=== PATIENT | male | born 1955 | race Hispanic/Latino ===

== ENCOUNTER 2017-08-14 11:15 | Day surgery (SDC) | payer BC ==
[2017-08-14 07:57] VITALS: BMI 28.0
[2017-08-14] MEDS ORDERED: Lactated Ringer's 1,000 ML IV ONE (13:45)
[2017-08-14] MEDS ORDERED: Ciprofloxacin 400mg/200ml D5W 400 MG/200 ML BAG IVPB ONE (13:49)
[2017-08-14] MEDS ORDERED: Bupivacaine HCl 0.25% PF (30 ml) Inj ONE (13:49)
[2017-08-14] MEDS ORDERED: Midazolam 2 MG/2 ML VIAL ONE (14:01)
[2017-08-14] MEDS ORDERED: Propofol 10 mg/ml Inj (20 ML) ONE (14:01)
[2017-08-14] MEDS ORDERED: HYDROmorphone 0.5 mg/0.5 ml ISec IVP PRN (15:00)
[2017-08-14] MEDS ORDERED: Oxycodone/Acetaminophen 5/325 mg Tab PO PRN (15:20)
[2017-08-14 16:24] VITALS: RESP 18; TEMP 97.7
[2017-08-14 16:51] VITALS: BP 127/81; PULSE 84; O2SAT 97
--- NOTE | 2017-08-15 01:31 | HP ---
REASON FOR ADMISSION: Right hydrocele. HISTORY: The patient previously had a left hydrocelectomy with me. He is currently doing very well and in fact he is enthusiastic for this. I explained to the patient though that this is a little bit of a different size, much smaller, and the expectation should not be quite as good in terms of his discomfort. He is actually fairly uncomfortable interestingly enough with this. We had discussed the options with the patient. He says it bothers him and therefore, after discussing those options with the patient, we are planning to do further diagnostic studies. PAST MEDICAL AND SURGICAL HISTORY: Really no other interim changes, relatively healthy, but there is no interval change. SOCIAL HISTORY: He comes to the office. He is from [place] originally. I have spoken to his daughter several times. Otherwise unremarkable. MEDICATIONS: See chart. ALLERGIES: SEE CHART. PHYSICAL EXAMINATION: GENERAL: No apparent distress. VITAL SIGNS: Within normal limits. ABDOMEN: Soft and nontender. No flank mass appreciated. GENITOURINARY: Normal phallus without discharge. No testicular mass. What is noted is the right hemiscrotum has the hydrocele. The left side is still somewhat a little bit edematous, but tremendously improved from previous exam, the skin is healing nicely. Remainder of the exam is unremarkable. DIAGNOSIS: Bilateral hydroceles with a remnant of the right hydrocele today. PLAN: The plan is as follows. We discussed the options. We are going to plan for right hydrocelectomy and then further plans will follow. I explained to the patient risks and benefits, we discussed recurrence, I discussed even the left side to recur, I discussed infection, bleeding, etc. After discussing the options, my recommendation is to proceed. The patient is very unhappy with the way the scrotum feels, he is so much happy on the left side, I did explain that there is a difference that the original fluid was about 400 to 500 mL, the right side is only about 100 mL. Further plans will follow. The patient wants it done and he is uncomfortable with the way it feels and appears, etc. So after discussing the plan as above; 1. Antibiotic prophylaxis. 2. Hydrocelectomy. 3. Further plans will follow. Nghia Mac MD [facility] # [id number]
--- NOTE | 2017-08-15 04:59 | OP ---
PROCEDURE DATE: 08/14/2017 PREOPERATIVE DIAGNOSIS: Right hydrocele, bilateral hydrocele. POSTOPERATIVE DIAGNOSIS: Right hydrocele today. PROCEDURE: Right hydrocelectomy. SURGEON: Nghia Mac MD SPECIMEN SENT: hydrocele sac. ESTIMATED BLOOD LOSS: Less than 20 mL. COMPLICATIONS: There were no complications. FINDINGS: The testicles are within normal limits. The epididymis is actually interestingly like almost a separate piece from the testicle, but otherwise, with normal limits. No masses. The other finding, chest is clear. Yellow fluid, only about 150 mL. INDICATIONS: See history and physical for further details. A very pleasant gentleman. We did the left side, it was actually about 400 to 500 mL. This was done actually in another institution. He is healing well, and he is very happy and he is looking forward to this. I explained to him that we are going to expect a little bit of a different result but after discussing with the patient and also discussing the risk of recurrence etc., he is now here for the above procedure. DESCRIPTION OF PROCEDURE: After bringing the patient to the OR, placed on the table, routine monitors were placed. Time-out was called to confirm the patient positioning. The patient was given antibiotic prophylaxis, we used Cipro. The patient is ALLERGIC TO PENICILLIN. We made a transverse incision about 2 to 3 cm at most, went through the underlying layers . I had the bankruptcy legal assistant holding the tension to deliver the whole sac intact. We delivered the whole sac intact. We are now looking side into the hydrocele sac. We delivered about 150 mL of clear yellow fluid. I inspected the testicle further. The testicle looks nice, light, and clear. Interestingly, the epididymis looks like it is not surrounding well around the testicles, certainly it is an interesting observation about anatomy. We now inspect further. There are really no other abnormalities appreciated. We achieved hemostasis. We vonda the edges of the sac in a lower technique. Being careful to vonda the sac so that there are no areas of the fluid to accumulate. We now injected now the cord and the skin with Marcaine. Postop analgesia. Placed two Jupiter drains and then secured it in place. We closed the incision in couple of layers. The skin with mattress sutures, 2-0 Vicryl, 3-0 Vicryl. Overall, the patient tolerated the procedure well. The patient was brought to the recovery room in stable condition. Nghia Mac MD
--- NOTE | 2017-08-17 17:20 | CARD ---
APPROVED REPORT EKG Measurement Heart [id number] <Conclusion> Normal sinus rhythm Normal ECG
== END 2017-08-14 16:45 | disposition home or self-care (01) ==
LOC: C.SDS 11:15
PROVIDERS: ATTEND Urology
DX: N43.2 Other hydrocele (principal); I10 Essential (primary) hypertension; Z88.0 Allergy status to penicillin
CPT/HCPCS: 55040; 88302; 93005; J0744; J1885; J2001; J2250; J2405; J2704; J3010; J7120

== ENCOUNTER 2017-08-16 11:46 | Inpatient (IN) | payer BC ==
[2017-08-16 11:46] VITALS: BMI 28.0
[2017-08-16] MEDS ORDERED: Sodium Chloride 0.9% 1,000 ML IV ONE (13:11)
[2017-08-16 13:17] LABS: BASO % 0.1 % (0.0-2.0); EOS % 0.1 % (0.0-4.0); HEMOGLOBIN 14.1 g/dL (12.0-18.0); LYMPH # 0.9 K/uL (1.0-4.3); LYMPH % 8.4 % (20.0-40.0); MEAN CELL VOLUME 95.9 fL (80.0-94.0); MEAN CORPUSCULAR HEMOGLOBIN 34.1 pg (27.0-31.0); MEAN CORPUSCULAR HGB CONC 35.6 g/dL (33.0-37.0); MEAN PLATELET VOLUME 8.8 fL (7.2-11.7); MONO % 9.9 % (0.0-10.0); NEUT # 8.5 K/uL (1.8-7.0); NEUT % 81.5 % (50.0-75.0); PLATELET COUNT 150 K/uL (130-400); RBC 4.12 Mil/uL (4.40-5.90); RED CELL DISTRIBUTION WIDTH 12.4 % (11.5-14.5); WHITE BLOOD COUNT 10.4 K/uL (4.8-10.8)
[2017-08-16] MEDS ORDERED: Sodium Chloride 0.9% 1,000 ML ONE (13:29)
[2017-08-16 13:31] LABS: ALB/GLOB RATIO 1.3 (1.0-2.1); ALT/SGPT 16 U/L (21-72); AST/SGOT 15 U/L (17-59); BLOOD UREA NITROGEN 10 mg/dL (9-20); GFR AFRICAN-AMERICAN > 60; GFR NON-AFRICAN AMERICAN > 60
--- NOTE | 2017-08-16 13:43 | C.PDOC ---
History Of Present Illness 62 y/o male w/PMHx of HTN, kidney stone, hx of hydrocele ectomy by 2 days ago, presents to ED for evaluation of low grade fever, malaise, weakness , dry cough gradually developed for past 24 hours. Pt also reports, slight discomfort on urination, dark urine, noted since yesterday. Patient reports, was seen by yesterday, draining removed. Pt took 1dose of given abx- cipro, doxy by . Otherwise, Patient denies high fever, headache, dizziness, neck pain, sore throat, drooling, CP, SOB, dyspnea, palpitation, wheezing, abd. pain, V/D, hematuria. Ambulate to Ed for evaluation, not in any apparent distress. Time Seen by Provider: 08/16/17 12:38 Chief Complaint (Nursing): Fever History Per: Patient History/Exam Limitations: no limitations Onset/Duration Of Symptoms: Days Current Symptoms Are (Timing): Still Present Past Medical History Reviewed: Historical Data, Nursing Documentation, Vital Signs Vital Signs: Last Vital Signs Temp 99.2 F 08/16/17 16:40 Pulse 110 H 08/16/17 16:40 Resp 22 08/16/17 16:40 BP 113/71 08/16/17 16:40 Pulse Ox 95 08/16/17 16:40 - Medical History PMH: Cardia Arrhythmia (tachycardia), HTN, Kidney Stones, Pneumonia (25 years ago) Other Surgeries: s/p Right hydroceleectomy 2 days ago Family History: States: No Known Family Hx - Social History Hx Tobacco Use: No Hx Alcohol Use: Yes Hx Substance Use: No - Immunization History Hx Tetanus Toxoid Vaccination: No Hx Influenza Vaccination: No Hx Pneumococcal Vaccination: No Review Of Systems Except As Marked, All Systems Reviewed And Found Negative. Constitutional: Positive for: Fever, Malaise. Negative for: Chills Eyes: Negative for: Vision Change ENT: Negative for: Ear Discharge, Nose Discharge, Nose Congestion, Throat Pain Cardiovascular: Negative for: Chest Pain, Palpitations, Edema, Light Headedness Respiratory: Positive for: Cough. Negative for: Shortness of Breath, Pleuritic Pain, Sputum, Wheezing Gastrointestinal: Negative for: Nausea, Vomiting, Abdominal Pain, Diarrhea Genitourinary: Positive for: Dysuria. Negative for: Hematuria, Scrotal Pain Musculoskeletal: Negative for: Neck Pain, Back Pain Skin: Negative for: Rash Neurological: Negative for: Weakness, Numbness, Altered Mental Status, Dizziness Physical Exam - Physical Exam Appears: Well, Non-toxic, No Acute Distress Skin: Warm, Dry, No Rash Head: Normacephalic Eye(s): bilateral: PERRL Nose: No Flaring, No Discharge Oral Mucosa: Moist, No Drooling Tongue: Normal Appearing Lips: Normal Appearing Throat: No Erythema, No Drooling Neck: Trachea Midline, Supple Cardiovascular: Rhythm Regular, No Murmur, No JVD Respiratory: Decreased Breath Sounds (some LLL), No Accessory Muscle Use, No Rales, No Rhonchi, No Stridor, No Wheezing Gastrointestinal/Abdominal: Soft, No Tenderness, No Guarding, No Rebound Back: No CVA Tenderness, No Paraspinal Tenderness Extremity: Normal ROM, No Pedal Edema, Capillary Refill (<2 seconds) Neurological/Psych: Oriented x3, Normal Speech, Normal Cognition ED Course And Treatment - Laboratory Results Result Diagrams: 08/16/17 13:10 08/16/17 13:10 O2 Sat by Pulse Oximetry: 94 (RA) Pulse Ox Interpretation: Normal - Radiology CXR: Read By Radiologist CXR Interpretation: Yes: Infiltrates (LLL) Progress Note: Spoke with Dr. Mac patient is s/p Hydrocelectomy given Ciprofloxacin and doxycycline . Will re-eval in hospital. no recommendation for testicular immaging now. On re-eval, pt remained unchanged, (+) low grade fever , PulsEOx low on RA, but no use of accessory muscle or nasal flaring. neck: Supple, (-) meningeal sign, (-) JVD or carotid bruits B/L. Lungs: CTA B/L, BS equal B/L. CVS: (+)S1S2, reg. Abd: benign. UA (+) WBC, RBC, (-) nitrates. Pt has clinical findings c/w LLL PNA, UTI. case discussed with med-on-call and admission arranged. Blood cx, Ucx- pending Disposition - Disposition Disposition: HOSPITALIZED Disposition Time: 14:44 Condition: STABLE - Clinical Impression Clinical Impression: Pneumonia, Hypoxia, History of hydrocelectomy, UTI (urinary tract infection) - PA / SENIOR [employer] ADMINISTRATOR / Resident Statement MD/DO has reviewed & agrees with the documentation as recorded. - Scribe Statement The provider has reviewed the documentation as recorded by the Georgeibcarrie Mcdaniel All medical record entries made by the Tiffanie were at my direction and personally dictated by me. I have reviewed the chart and agree that the record accurately reflects my personal performance of the history, physical exam, medical decision making, and the department course for this patient. I have also personally directed, reviewed, and agree with the discharge instructions and disposition.
[2017-08-16 13:50] LABS: LYMPHOCYTE 8 % (20-40); MONOCYTE 7 % (0-10); NEUTROPHIL 85 % (50-75); PLATELET ESTIMATE NORMAL (NORMAL); TOTAL CELLS COUNTED 100
--- NOTE | 2017-08-16 14:12 | RAD ---
Chest x-ray two views History: Cough. Comparison: None available. Findings: Patchy increased consolidative markings at the left lung base suggestive for infiltrate and or atelectasis. Biapical pleural thickening with upper lobe granulomatous changes. Right hilar prominence. Tortuous aorta. Degenerative changes in the spine and shoulders. Impression: Patchy increased consolidative markings at the left lung base suggestive for infiltrate and or atelectasis. Biapical pleural thickening with upper lobe granulomatous changes. Right hilar prominence. Tortuous aorta.
[2017-08-16 14:28] LABS: SQUAMOUS EPITHIAL < 1 /hpf (0-5); URINE BACTERIA RARE (<OCC); URINE BILIRUBIN NEGATIVE (NEGATIVE); URINE BLOOD 2+ (NEGATIVE); URINE CALCIUM OXALATE CRYSTALS OCC /hpf (<OCC); URINE CLARITY Hazy (Clear); URINE COLOR Amber (YELLOW); URINE GLUCOSE (UA) 1+ mg/dL (Normal); URINE LEUKOCYTE ESTERASE TRACE Leu/uL (Negative); URINE PROTEIN 1+ mg/dL (NEGATIVE)
[2017-08-16] MEDS ORDERED: Ciprofloxacin 400mg/200ml D5W 400 MG/200 ML BAG IVPB STA (14:40)
[2017-08-16] MEDS ORDERED: Azithromycin 500 MG in Sodium Chloride 0.9% 250 ML IVPB STA (14:44)
[2017-08-16] MEDS ORDERED: Albuterol 0.083% Inhal Sol (2.5 mg/3 mL) UD IH STA (14:45)
[2017-08-16] MEDS ORDERED: Albuterol 0.083% Inhal Sol (2.5 mg/3 mL) UD ONE (15:43)
[2017-08-16] MEDS ORDERED: Ciprofloxacin 400mg/200ml D5W 400 MG/200 ML BAG IVPB ONE (15:43)
[2017-08-16] MEDS ORDERED: Pneumococcal 23-Valent Vaccine IM ONE (18:36)
--- NOTE | 2017-08-16 18:54 | CP.PCM.HP ---
History of Present Illness - History of Present Illness History of Present Illness: COUGH UTI S/P PROCEDURE FOD HYDROCELE Present on Admission - Present on Admission Any Indicators Present on Admission: No Review of Systems - Review of Systems Systems not reviewed;Unavailable: Acuity of Condition - Constitutional Constitutional: As Per HPI - EENT Eyes: As Per HPI Ears: As Per HPI Nose/Mouth/Throat: As Per HPI - Cardiovascular Cardiovascular: As Per HPI - Respiratory Respiratory: Cough - Gastrointestinal Gastrointestinal: As Per HPI - Genitourinary Genitourinary: Change in Urinary Stream, Dysuria - Reproductive: Male Additional comments: HYDRCELE - Musculoskeletal Musculoskeletal: As Per HPI - Integumentary Integumentary: As Per HPI - Neurological Neurological: As Per HPI - Psychiatric Psychiatric: As Per HPI - Endocrine Endocrine: As Per HPI - Hematologic/Lymphatic Hematologic: As Per HPI Past Patient History - Past Medical History & Family History Past Medical History?: Yes - Past Social History Smoking Status: Never Smoked - CARDIAC Hx Cardia Arrhythmia: Yes (tachycardia) Hx Hypertension: Yes - PULMONARY Hx Pneumonia: Yes (25 years ago) - NEUROLOGICAL Hx Neurological Disorder: No - HEENT Hx HEENT Problems: No - RENAL Hx Kidney Stones: Yes - ENDOCRINE/METABOLIC Hx Endocrine Disorders: No - HEMATOLOGICAL/ONCOLOGICAL Hx Blood Disorders: No - INTEGUMENTARY Hx Dermatological Problems: No - MUSCULOSKELETAL/RHEUMATOLOGICAL Hx Musculoskeletal Disorders: No Hx Falls: No - GASTROINTESTINAL Hx Gastrointestinal Disorders: No - GENITOURINARY/GYNECOLOGICAL Hx Genitourinary Disorders: No - PSYCHIATRIC Hx Substance Use: No - SURGICAL HISTORY Hx Surgeries: Yes Other/Comment: left hydrocelectomy exc mass left hand - ANESTHESIA Hx Anesthesia: Yes Hx Anesthesia Reactions: No Hx Malignant Hyperthermia: No Meds Allergies/Adverse Reactions: Allergies Allergy/AdvReac Type Severity Reaction Status Date / Time iodine Allergy Intermediate SWELLING Verified 08/16/17 11:55 Penicillins Allergy RASH Verified 08/16/17 11:55 Physical Exam - Constitutional Appears: Non-toxic - Head Exam Head Exam: ATRAUMATIC - Eye Exam Eye Exam: Normal appearance Pupil Exam: NORMAL ACCOMODATION - ENT Exam ENT Exam: Normal Oropharynx - Neck Exam Neck exam: Positive for: Full Rom - Respiratory Exam Respiratory Exam: Clear to Auscultation Bilateral, Rales - Cardiovascular Exam Cardiovascular Exam: Tachycardia, REGULAR RHYTHM - GI/Abdominal Exam GI & Abdominal Exam: Normal Bowel Sounds - Rectal Exam Rectal Exam: NORMAL INSPECTION - Exam Exam: Scrotal Swelling - Extremities Exam Extremities exam: Positive for: normal inspection - Back Exam Back exam: NORMAL INSPECTION - Neurological Exam Neurological exam: Alert, Oriented x3 - Psychiatric Exam Psychiatric exam: Normal Affect - Skin Skin Exam: Normal Color Results - Vital Signs Recent Vital Signs: Last Vital Signs Temp 99.2 F 08/16/17 16:40 Pulse 110 H 08/16/17 16:40 Resp 22 08/16/17 16:40 BP 113/71 08/16/17 16:40 Pulse Ox 94 L 08/16/17 17:54 - Labs Result Diagrams: 08/16/17 13:10 08/16/17 13:10 Labs: Laboratory Results - last 24 hr 08/16/17 08/16/17 08/16/17 13:10 13:10 13:34 WBC 10.4 RBC 4.12 L Hgb 14.1 Hct 39.5 MCV 95.9 H MCH 34.1 H MCHC 35.6 RDW 12.4 Plt Count 150 MPV 8.8 Neut % (Auto) 81.5 H Lymph % (Auto) 8.4 L [place] % (Auto) 9.9 Eos % (Auto) 0.1 Baso % (Auto) 0.1 Neut # (Auto) 8.5 H Lymph # (Auto) 0.9 L [place] # (Auto) 1.0 H Eos # (Auto) 0.0 Baso # (Auto) 0.0 Neutrophils % (Manual) 85 H Lymphocytes % (Manual) 8 L Monocytes % (Manual) 7 Platelet Estimate Normal RBC Morphology Normal Sodium 139 Potassium 3.8 Chloride 105 Carbon Dioxide 20 L Anion Gap 18 BUN 10 Creatinine 0.9 Est GFR ( Amer) > 60 Est GFR (Non-Af Amer) > 60 Random Glucose 130 H Calcium 11.0 H Total Bilirubin 3.2 H AST 15 L ALT 16 L Alkaline Phosphatase 82 Total Protein 6.9 Albumin 4.0 Globulin 2.9 Albumin/Globulin Ratio 1.3 Urine Color Urine Clarity Urine pH Ur Specific [place] Urine Protein Urine Glucose (UA) Urine Ketones Urine Blood Urine Nitrate Urine Bilirubin Urine Urobilinogen Ur Leukocyte Esterase Urine WBC (Auto) Urine RBC (Auto) Ur Squamous Epith Cells Calcium Oxalate Crystal Urine Bacteria Influenza Typ A,B (EIA) Negative for flu a/b 05/17/18 14:09 WBC RBC Hgb Hct MCV MCH MCHC RDW Plt Count MPV Neut % (Auto) Lymph % (Auto) [place] % (Auto) Eos % (Auto) Baso % (Auto) Neut # (Auto) Lymph # (Auto) [place] # (Auto) Eos # (Auto) Baso # (Auto) Neutrophils % (Manual) Lymphocytes % (Manual) Monocytes % (Manual) Platelet Estimate RBC Morphology Sodium Potassium Chloride Carbon Dioxide Anion Gap BUN Creatinine Est GFR ( Amer) Est GFR (Non-Af Amer) Random Glucose Calcium Total Bilirubin AST ALT Alkaline Phosphatase Total Protein Albumin Globulin Albumin/Globulin Ratio Urine Color Silvia Urine Clarity Hazy Urine pH 5.0 Ur Specific Morgan 1.026 Urine Protein 1+ H Urine Glucose (UA) 1+ H Urine Ketones Negative Urine Blood 2+ H Urine Nitrate Negative Urine Bilirubin Negative Urine Urobilinogen 2.0 Ur Leukocyte Esterase Trace Urine WBC (Auto) 33 H Urine RBC (Auto) 22 H Ur Squamous Epith Cells < 1 Calcium Oxalate Crystal Occ H Urine Bacteria Rare Influenza Typ A,B (EIA) Assessment & Plan - Assessment and Plan (Free Text) Assessment: AC UTI AC PNUMONIA HYDROCELE Plan: PER ORDERS - Date & Time Date: 08/16/17 Time: 18:56
[2017-08-16] MEDS ORDERED: Moxifloxacin IV 400mg/250ml NS 400 MG/250 ML BAG IVPB SCH ×2 (19:00→20:00)
[2017-08-16] MEDS ORDERED: Vancomycin 1 gm/NS 200 ml 1 GM/200 ML BAG IVPB STA (20:49)
[2017-08-16] MEDS ORDERED: Aztreonam 1 GM in Sodium Chloride 0.9% 100 ML IVPB SCH (21:00)
--- NOTE | 2017-08-16 23:29 | PCM.URO ---
Urology Progress Note - Objective Lab Studies: Reviewed (gu dx: infection gu plans: pt had hydrocelectomy on . 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) Lab Results Last 24 Hours: Laboratory Results - last 24 hr 08/16/17 08/16/17 08/16/17 13:10 13:10 13:34 WBC 10.4 RBC 4.12 L Hgb 14.1 Hct 39.5 MCV 95.9 H MCH 34.1 H MCHC 35.6 RDW 12.4 Plt Count 150 MPV 8.8 Neut % (Auto) 81.5 H Lymph % (Auto) 8.4 L [place] % (Auto) 9.9 Eos % (Auto) 0.1 Baso % (Auto) 0.1 Neut # (Auto) 8.5 H Lymph # (Auto) 0.9 L [place] # (Auto) 1.0 H Eos # (Auto) 0.0 Baso # (Auto) 0.0 Neutrophils % (Manual) 85 H Lymphocytes % (Manual) 8 L Monocytes % (Manual) 7 Platelet Estimate Normal RBC Morphology Normal Sodium 139 Potassium 3.8 Chloride 105 Carbon Dioxide 20 L Anion Gap 18 BUN 10 Creatinine 0.9 Est GFR ( Amer) > 60 Est GFR (Non-Af Amer) > 60 Random Glucose 130 H Calcium 11.0 H Total Bilirubin 3.2 H AST 15 L ALT 16 L Alkaline Phosphatase 82 Total Protein 6.9 Albumin 4.0 Globulin 2.9 Albumin/Globulin Ratio 1.3 Urine Color Urine Clarity Urine pH Ur Specific [place] Urine Protein Urine Glucose (UA) Urine Ketones Urine Blood Urine Nitrate Urine Bilirubin Urine Urobilinogen Ur Leukocyte Esterase Urine WBC (Auto) Urine RBC (Auto) Ur Squamous Epith Cells Calcium Oxalate Crystal Urine Bacteria Influenza Typ A,B (EIA) Negative for flu a/b 08/16/17 14:09 WBC RBC Hgb Hct MCV MCH MCHC RDW Plt Count MPV Neut % (Auto) Lymph % (Auto) [place] % (Auto) Eos % (Auto) Baso % (Auto) Neut # (Auto) Lymph # (Auto) [place] # (Auto) Eos # (Auto) Baso # (Auto) Neutrophils % (Manual) Lymphocytes % (Manual) Monocytes % (Manual) Platelet Estimate RBC Morphology Sodium Potassium Chloride Carbon Dioxide Anion Gap BUN Creatinine Est GFR ( Amer) Est GFR (Non-Af Amer) Random Glucose Calcium Total Bilirubin AST ALT Alkaline Phosphatase Total Protein Albumin Globulin Albumin/Globulin Ratio Urine Color Silvia Urine Clarity Hazy Urine pH 5.0 Ur Specific [place] 1.026 Urine Protein 1+ H Urine Glucose (UA) 1+ H Urine Ketones Negative Urine Blood 2+ H Urine Nitrate Negative Urine Bilirubin Negative Urine Urobilinogen 2.0 Ur Leukocyte Esterase Trace Urine WBC (Auto) 33 H Urine RBC (Auto) 22 H Ur Squamous Epith Cells < 1 Calcium Oxalate Crystal Occ H Urine Bacteria Rare Influenza Typ A,B (EIA) Intake & Output: Intake & Output 08/16/17 08/16/17 08/17/17 06:59 18:59 06:59 Intake Total 440 Balance 440 Weight 250 lb Intake: Intake, IV Amount 200 Right Hand 200 Oral 240 Other: Voiding Method Toilet # Voids Urine, Voided 2 # Bowel Movements 0 Vital Signs: Vital Signs - 24 hr 08/16/17 08/16/17 08/16/17 11:49 13:19 14:31 Temperature 97.9 F 100.4 F H 99.5 F Pulse Rate 79 117 H 103 H Respiratory 20 22 22 Rate Blood Pressure 114/71 124/63 O2 Sat by Pulse 96 94 L 95 Oximetry 08/16/17 08/16/17 08/16/17 16:40 17:54 20:02 Temperature 99.2 F 102 F H Pulse Rate 110 H Respiratory 22 Rate Blood Pressure 113/71 O2 Sat by Pulse 95 94 L Oximetry 08/16/17 21:02 Temperature 98.4 F Pulse Rate Respiratory Rate Blood Pressure O2 Sat by Pulse Oximetry
[2017-08-16] MEDS: Aztreonam 1 GM in Sodium Chloride 0.9% 100 ML IVPB SCH (23:58)
[2017-08-17 01:30] VITALS: RESP 20
[2017-08-17] MEDS: Ciprofloxacin 400mg/200ml D5W 400 MG/200 ML BAG IVPB SCH ×2 (04:03→16:51)
--- NOTE | 2017-08-17 09:52 | CP.PCM.PN ---
Subjective - Date & Time of Evaluation Date of Evaluation: 08/17/17 Time of Evaluation: 09:49 - Subjective Subjective: pt still coughing dry Objective - Vital Signs/Intake and Output Vital Signs (last 24 hours): Temp Pulse Resp BP Pulse Ox 98.2 F 98 H 20 122/79 96 08/17/17 08:00 08/17/17 08:00 08/17/17 08:00 08/17/17 08:00 08/17/17 08:00 Intake and Output: 08/17/17 08/17/17 06:59 18:59 Intake Total 440 Balance 440 - Medications Medications: Current Medications Acetaminophen (Tylenol 325mg Tab) 650 mg PO Q6 PRN PRN Reason: Fever >100.4 F Last Admin: 08/16/17 20:02 Dose: 650 mg Heparin Sodium (Porcine) (Heparin) 5,000 units SC Q12 KATHARINA Azithromycin 500 mg/ Sodium (Chloride) 250 mls @ 250 mls/hr IVPB Q24H [facility] Stop: 08/19/17 15:59 Ciprofloxacin (Cipro 400mg/200ml Dsw) 400 mg in 200 mls @ 200 mls/hr IVPB Q12H KATHARINA Stop: 08/19/17 16:59 Last Admin: 08/17/17 04:03 Dose: 200 mls/hr Aztreonam 1 gm/ Sodium (Chloride) 100 mls @ 200 mls/hr IVPB Q8H KATHARINA PRN Reason: Protocol Last Admin: 08/16/17 23:58 Dose: 200 mls/hr Losartan Potassium (Cozaar) 50 mg PO DAILY [facility] Pneumococcal Polyvalent Vaccine (Pneumovax 23 Vaccine) 0.5 ml IM .ONCE ONE Stop: 08/20/17 10:01 - Labs Labs: 08/16/17 13:10 08/16/17 13:10 - Constitutional Appears: Non-toxic - Head Exam Head Exam: ATRAUMATIC - Eye Exam Eye Exam: Normal appearance Pupil Exam: NORMAL ACCOMODATION - ENT Exam ENT Exam: Mucous Membranes Moist - Neck Exam Neck Exam: Full ROM - Respiratory Exam Respiratory Exam: Decreased Breath Sounds, Rales - Cardiovascular Exam Cardiovascular Exam: REGULAR RHYTHM - GI/Abdominal Exam GI & Abdominal Exam: Normal Bowel Sounds - Rectal Exam Rectal Exam: NORMAL INSPECTION - Exam External exam: Swelling - Extremities Exam Extremities Exam: Normal Inspection - Back Exam Back Exam: NORMAL INSPECTION - Neurological Exam Neurological Exam: Normal Gait, Oriented x3 - Psychiatric Exam Psychiatric exam: Normal Affect - Skin Skin Exam: Normal Color Assessment and Plan - Assessment and Plan (Free Text) Assessment: ac pnumonia r/o granulomtos ds ac uti Plan: cont as per orders
[2017-08-17] MEDS: Aztreonam 1 GM in Sodium Chloride 0.9% 100 ML IVPB SCH ×3 (10:38→23:41)
--- NOTE | 2017-08-17 13:13 | CARD ---
APPROVED REPORT EKG Measurement Heart [id number] <Conclusion> Sinus tachycardia with 1st degree AV block Otherwise normal ECG
--- NOTE | 2017-08-17 14:27 | CT ---
PROCEDURE: CT Chest without contrast HISTORY: cough,r/o sarcoidosis COMPARISON: None. TECHNIQUE: Contiguous axial images were obtained through the chest without intravenous contrast enhancement. Sagittal and coronal reconstructions were performed. Radiation dose (DLP): 770.49 mGy-cm. This CT exam was performed using one or more of the following dose reduction techniques: Automated exposure control, adjustment of the mA and/or kV according to patient size, and/or use of iterative reconstruction technique. FINDINGS: LUNGS: Bilateral lower lobe linear scar/ atelectasis. No pulmonary mass. No evidence of generalized interstitial disease. MEDIASTINUM: Unremarkable thoracic aorta. No aneurysm. Normal sized heart. Main pulmonary artery unremarkable. No vascular congestion. No lymphadenopathy. PLEURA: Minimal dependent pleural thickening bilaterally. No pleural effusion. No pneumothorax. 12 mm nodule lower pole left lobe of thyroid and 11 mm nodule mid right lobe. Correlate with thyroid ultrasound examination. BONES: No fracture. No destructive lesion. UPPER ABDOMEN: Multiple small low-density hip nonspecific hepatic masses, 10 mm each. Likely cysts. OTHER FINDINGS: None. IMPRESSION: No evidence of sarcoid. Minor findings as above.
[2017-08-17] MEDS ORDERED: Azithromycin 500 MG in Sodium Chloride 0.9% 250 ML IVPB SCH (15:00)
--- NOTE | 2017-08-17 15:06 | CP.PCM.CON ---
History of Present Illness - History of Present Illness History of Present Illness: reason for consultation: dry cough 62 y/o male w/PMHx of HTN, kidney stone, hx of hydrocele ectomy by 2 days ago, presented to ED for evaluation of low grade fever, malaise, weakness , dry cough . denies shortness of breath, denies fevers chills, denies chest pain. Cough is mostly dry and poor due to the day and at night. CAT scan of the chest consistent with atelectasis and no acute infiltrate.Patient also complaining of wheezing Review of Systems - Review of Systems All systems: reviewed and no additional remarkable complaints except ( complaining of dry cough) Past Patient History - Past Medical History & Family History Past Medical History?: Yes - Past Social History Smoking Status: Never Smoked - CARDIAC Hx Cardia Arrhythmia: Yes (tachycardia) Hx Hypertension: Yes - PULMONARY Hx Pneumonia: Yes (25 years ago) - NEUROLOGICAL Hx Neurological Disorder: No - HEENT Hx HEENT Problems: No - RENAL Hx Kidney Stones: Yes - ENDOCRINE/METABOLIC Hx Endocrine Disorders: No - HEMATOLOGICAL/ONCOLOGICAL Hx Blood Disorders: No - INTEGUMENTARY Hx Dermatological Problems: No - MUSCULOSKELETAL/RHEUMATOLOGICAL Hx Musculoskeletal Disorders: No Hx Falls: No - GASTROINTESTINAL Hx Gastrointestinal Disorders: No - GENITOURINARY/GYNECOLOGICAL Hx Genitourinary Disorders: No - PSYCHIATRIC Hx Substance Use: No - SURGICAL HISTORY Hx Surgeries: Yes Other/Comment: left hydrocelectomy exc mass left hand - ANESTHESIA Hx Anesthesia: Yes Hx Anesthesia Reactions: No Hx Malignant Hyperthermia: No Meds Allergies/Adverse Reactions: Allergies Allergy/AdvReac Type Severity Reaction Status Date / Time iodine Allergy Intermediate SWELLING Verified 08/16/17 11:55 Penicillins Allergy RASH Verified 08/16/17 11:55 - Medications Medications: Current Medications Acetaminophen (Tylenol 325mg Tab) 650 mg PO Q6 PRN PRN Reason: Fever >100.4 F Last Admin: 08/16/17 20:02 Dose: 650 mg Heparin Sodium (Porcine) (Heparin) 5,000 units SC Q12 [facility] Last Admin: 08/17/17 10:51 Dose: 5,000 units Azithromycin 500 mg/ Sodium (Chloride) 250 mls @ 250 mls/hr IVPB Q24H [facility] Stop: 08/19/17 15:59 Ciprofloxacin (Cipro 400mg/200ml Dsw) 400 mg in 200 mls @ 200 mls/hr IVPB Q12H [facility] Stop: 08/19/17 16:59 Last Admin: 08/17/17 04:03 Dose: 200 mls/hr Aztreonam 1 gm/ Sodium (Chloride) 100 mls @ 200 mls/hr IVPB Q8H [facility] PRN Reason: Protocol Last Admin: 08/17/17 10:38 Dose: 200 mls/hr Losartan Potassium (Cozaar) 50 mg PO DAILY [facility] Last Admin: 08/17/17 10:45 Dose: 50 mg Pneumococcal Polyvalent Vaccine (Pneumovax 23 Vaccine) 0.5 ml IM .ONCE ONE Stop: 08/20/17 10:01 Physical Exam - Head Exam Head Exam: ATRAUMATIC, NORMOCEPHALIC - ENT Exam ENT Exam: Mucous Membranes Moist - Neck Exam Neck exam: Positive for: Normal Inspection - Respiratory Exam Respiratory Exam: Clear to Auscultation Bilateral - Cardiovascular Exam Cardiovascular Exam: REGULAR RHYTHM - GI/Abdominal Exam GI & Abdominal Exam: Normal Bowel Sounds, Soft - Extremities Exam Extremities exam: Positive for: normal inspection - Neurological Exam Neurological exam: Alert, Oriented x3 Results - Vital Signs Recent Vital Signs: Last Vital Signs Temp 98.2 F 08/17/17 08:00 Pulse 98 H 08/17/17 08:00 Resp 20 08/17/17 08:00 BP 122/79 08/17/17 08:00 Pulse Ox 96 08/17/17 08:00 - Labs Result Diagrams: 08/16/17 13:10 08/16/17 13:10 Assessment & Plan (1) Cough Status: Acute Comment: atelectasis on CAT scan of the chest. Start nebulizer treatment. Budesonide. Benzonatate. Discontinue azithromycin as patient is already on Cipro (2) UTI (urinary tract infection) Status: Acute
[2017-08-17] MEDS ORDERED: Budesonide 0.5 mg/2 ml Inhal Susp UD INH SCH (20:00)
--- NOTE | 2017-08-17 21:11 | CP.PCM.CON ---
History of Present Illness - History of Present Illness History of Present Illness: 62 y/o male w/PMHx of HTN, kidney stone, hx of hydrocele ectomy by 2 days ago, presents to ED for evaluation of low grade fever, malaise, weakness , dry cough gradually developed for past 24 hours. Pt also reports, slight discomfort on urination, dark urine, noted since yesterday. Patient reports, was seen by yesterday, draining removed. Pt took 1dose of given abx- cipro, doxy by . Otherwise, Patient denies high fever, headache, dizziness, neck pain, sore throat, drooling, CP, SOB, dyspnea, palpitation, wheezing, abd. pain, V/D, hematuria. Ambulate to Ed for evaluation, not in any apparent distress. Pt allergic to PCN IV antibiotics ordered cultures pending - Medical History PMH: Cardia Arrhythmia (tachycardia), HTN, Kidney Stones, Pneumonia (25 years ago) Other Surgeries: s/p Right hydroceleectomy 2 days ago Family History: States: No Known Family Hx Review Of Systems Except As Marked, All Systems Reviewed And Found Negative. Constitutional: Positive for: Fever, Malaise. Negative for: Chills Eyes: Negative for: Vision Change ENT: Negative for: Ear Discharge, Nose Discharge, Nose Congestion, Throat Pain Cardiovascular: Negative for: Chest Pain, Palpitations, Edema, Light Headedness Respiratory: Positive for: Cough. Negative for: Shortness of Breath, Pleuritic Pain, Sputum, Wheezing Gastrointestinal: Negative for: Nausea, Vomiting, Abdominal Pain, Diarrhea Genitourinary: Positive for: Dysuria. Negative for: Hematuria, Scrotal Pain Musculoskeletal: Negative for: Neck Pain, Back Pain Skin: Negative for: Rash Neurological: Negative for: Weakness, Numbness, Altered Mental Status, Dizziness Past Patient History - Past Medical History & Family History Past Medical History?: Yes - Past Social History Smoking Status: Never Smoked - CARDIAC Hx Cardia Arrhythmia: Yes (tachycardia) Hx Hypertension: Yes - PULMONARY Hx Pneumonia: Yes (25 years ago) - NEUROLOGICAL Hx Neurological Disorder: No - HEENT Hx HEENT Problems: No - RENAL Hx Kidney Stones: Yes - ENDOCRINE/METABOLIC Hx Endocrine Disorders: No - HEMATOLOGICAL/ONCOLOGICAL Hx Blood Disorders: No - INTEGUMENTARY Hx Dermatological Problems: No - MUSCULOSKELETAL/RHEUMATOLOGICAL Hx Musculoskeletal Disorders: No Hx Falls: No - GASTROINTESTINAL Hx Gastrointestinal Disorders: No - GENITOURINARY/GYNECOLOGICAL Hx Genitourinary Disorders: No - PSYCHIATRIC Hx Substance Use: No - SURGICAL HISTORY Hx Surgeries: Yes Other/Comment: left hydrocelectomy exc mass left hand - ANESTHESIA Hx Anesthesia: Yes Hx Anesthesia Reactions: No Hx Malignant Hyperthermia: No Meds Allergies/Adverse Reactions: Allergies Allergy/AdvReac Type Severity Reaction Status Date / Time iodine Allergy Intermediate SWELLING Verified 08/16/17 11:55 Penicillins Allergy RASH Verified 08/16/17 11:55 - Medications Medications: Current Medications Acetaminophen (Tylenol 325mg Tab) 650 mg PO Q6 PRN PRN Reason: Fever >100.4 F Last Admin: 08/16/17 20:02 Dose: 650 mg Albuterol Sulfate (Albuterol 0.083% Inhal Татьяна (2.5 Mg/3 Ml) Ud) 2.5 mg INH RQ6 [facility] Benzonatate (Tessalon Perles) 200 mg PO BID [facility] Last Admin: 08/17/17 18:16 Dose: 200 mg Budesonide (Pulmicort Respules) 0.5 mg INH RQ12 [facility] Heparin Sodium (Porcine) (Heparin) 5,000 units SC Q12 [facility] Last Admin: 08/17/17 10:51 Dose: 5,000 units Ciprofloxacin (Cipro 400mg/200ml Dsw) 400 mg in 200 mls @ 200 mls/hr IVPB Q12H [facility] Stop: 08/19/17 16:59 Last Admin: 08/17/17 16:51 Dose: 200 mls/hr Aztreonam 1 gm/ Sodium (Chloride) 100 mls @ 200 mls/hr IVPB Q8H [facility] PRN Reason: Protocol Last Admin: 08/17/17 16:46 Dose: 200 mls/hr Losartan Potassium (Cozaar) 50 mg PO DAILY [facility] Last Admin: 08/17/17 10:45 Dose: 50 mg Pneumococcal Polyvalent Vaccine (Pneumovax 23 Vaccine) 0.5 ml IM .ONCE ONE Stop: 08/20/17 10:01 Physical Exam - Constitutional Appears: No Acute Distress, Chronically Ill - Head Exam Head Exam: ATRAUMATIC, NORMOCEPHALIC - Eye Exam Eye Exam: PERRL - ENT Exam ENT Exam: Mucous Membranes Dry - Neck Exam Neck exam: Negative for: Lymphadenopathy - Respiratory Exam Respiratory Exam: Decreased Breath Sounds - Cardiovascular Exam Cardiovascular Exam: REGULAR RHYTHM - GI/Abdominal Exam GI & Abdominal Exam: Diminished Bowel Sounds, Soft - Rectal Exam Rectal Exam: Deferred - Exam Exam: Scrotal Swelling. absent: NORMAL INSPECTION - Extremities Exam Extremities exam: Negative for: pedal edema - Back Exam Back exam: absent: CVA tenderness (L), CVA tenderness (R), paraspinal tenderness - Neurological Exam Neurological exam: Alert, CN II-XII Intact, Oriented x3, Reflexes Normal - Psychiatric Exam Psychiatric exam: Depressed Results - Vital Signs Recent Vital Signs: Last Vital Signs Temp 99.1 F 08/17/17 15:00 Pulse 102 H 08/17/17 15:00 Resp 20 08/17/17 15:00 BP 121/64 08/17/17 15:00 Pulse Ox 96 08/17/17 15:00 - Labs Result Diagrams: 08/16/17 13:10 08/16/17 13:10 Assessment & Plan (1) Cough Status: Acute (2) History of hydrocelectomy Status: Acute (3) Pneumonia Status: Acute (4) UTI (urinary tract infection) Status: Acute - Assessment and Plan (Free Text) Assessment: cont empiric rx await cultures dr wallis on consuult
[2017-08-18] MEDS: Albuterol 0.083% Inhal Sol (2.5 mg/3 mL) UD INH SCH ×3 (01:11→13:09)
[2017-08-18] MEDS: Ciprofloxacin 400mg/200ml D5W 400 MG/200 ML BAG IVPB SCH ×2 (04:36→16:58)
--- NOTE | 2017-08-18 06:20 | PCM.URO ---
Urology Progress Note - Subjective Abdominal Pain: Yes (scrotal pain wnl post op) - Objective Lab Studies: Reviewed (gu dx;s/p hydorcelectomy, positive urine cultures noted gu plans ; ID Note appreciated, Dr Stephens note appreciated, consolidation but no infiltrate ,, plans :Antibiotics , and elevation of scrotum. (normal appearance post op )) Intake & Output: Intake & Output 08/17/17 08/17/17 08/18/17 06:59 18:59 06:59 Intake Total 440 500 800 Balance 440 500 800 Intake: Intake, IV Amount 200 300 Right Hand 200 300 Oral 240 500 500 Other: # Voids Urine, Voided 2 2 3 # Bowel Movements 0 0 0 Vital Signs: Vital Signs - 24 hr 08/17/17 08/17/17 08/18/17 08:00 15:00 00:00 Temperature 98.2 F 99.1 F 99.2 F Pulse Rate 98 H 102 H 96 H Respiratory 20 20 20 Rate Blood Pressure 122/79 121/64 111/68 O2 Sat by Pulse 96 96 94 L Oximetry 08/18/17 01:14 Temperature Pulse Rate 98 H Respiratory Rate Blood Pressure O2 Sat by Pulse Oximetry
[2017-08-18] MEDS: Aztreonam 1 GM in Sodium Chloride 0.9% 100 ML IVPB SCH ×2 (08:16→15:39)
--- NOTE | 2017-08-18 11:01 | CP.PCM.PN ---
Subjective - Date & Time of Evaluation Date of Evaluation: 08/18/17 Time of Evaluation: 10:58 - Subjective Subjective: still coughing Objective - Vital Signs/Intake and Output Vital Signs (last 24 hours): Temp Pulse Resp BP Pulse Ox 97.5 F L 92 H 20 108/69 95 08/18/17 07:47 08/18/17 07:47 08/18/17 07:47 08/18/17 07:47 08/18/17 07:47 Intake and Output: 08/18/17 08/18/17 06:59 18:59 Intake Total 800 Balance 800 - Medications Medications: Current Medications Acetaminophen (Tylenol 325mg Tab) 650 mg PO Q6 PRN PRN Reason: Fever >100.4 F Last Admin: 08/16/17 20:02 Dose: 650 mg Albuterol Sulfate (Albuterol 0.083% Inhal Татьяна (2.5 Mg/3 Ml) Ud) 2.5 mg INH RQ6 [facility] Last Admin: 08/18/17 08:25 Dose: 2.5 mg Benzonatate (Tessalon Perles) 200 mg PO BID [facility] Last Admin: 08/18/17 09:45 Dose: 200 mg Budesonide (Pulmicort Respules) 0.5 mg INH RQ12 [facility] Last Admin: 08/18/17 08:25 Dose: 0.5 mg Heparin Sodium (Porcine) (Heparin) 5,000 units SC Q12 [facility] Last Admin: 08/18/17 09:45 Dose: 5,000 units Ciprofloxacin (Cipro 400mg/200ml Dsw) 400 mg in 200 mls @ 200 mls/hr IVPB Q12H [facility] Stop: 08/19/17 16:59 Last Admin: 08/18/17 04:36 Dose: 200 mls/hr Aztreonam 1 gm/ Sodium (Chloride) 100 mls @ 200 mls/hr IVPB Q8H [facility] PRN Reason: Protocol Last Admin: 08/18/17 08:16 Dose: 200 mls/hr Losartan Potassium (Cozaar) 50 mg PO DAILY [facility] Last Admin: 08/18/17 09:45 Dose: 50 mg Pneumococcal Polyvalent Vaccine (Pneumovax 23 Vaccine) 0.5 ml IM .ONCE ONE Stop: 08/20/17 10:01 - Labs Labs: 08/16/17 13:10 08/16/17 13:10 - Constitutional Appears: Non-toxic - Head Exam Head Exam: NORMAL INSPECTION - Eye Exam Eye Exam: Normal appearance - ENT Exam ENT Exam: TM's Normal Bilaterally - Neck Exam Neck Exam: Full ROM - Respiratory Exam Respiratory Exam: Decreased Breath Sounds, Rales - Cardiovascular Exam Cardiovascular Exam: REGULAR RHYTHM - GI/Abdominal Exam GI & Abdominal Exam: Normal Bowel Sounds - Extremities Exam Extremities Exam: Normal Inspection - Back Exam Back Exam: NORMAL INSPECTION - Psychiatric Exam Psychiatric exam: Normal Affect - Skin Skin Exam: Normal Color Assessment and Plan - Assessment and Plan (Free Text) Assessment: uti ac pnumonitis thyroid nodule liver leasions Plan: as per orders
--- NOTE | 2017-08-18 13:29 | CP.PCM.PN ---
Subjective - Date & Time of Evaluation Date of Evaluation: 08/18/17 Time of Evaluation: 12:00 - Subjective Subjective: patient Not in the room and getting ultrasound Will followup Objective - Vital Signs/Intake and Output Vital Signs (last 24 hours): Temp Pulse Resp BP Pulse Ox 97.5 F L 92 H 20 108/69 95 08/18/17 07:47 08/18/17 07:47 08/18/17 07:47 08/18/17 07:47 08/18/17 07:47 Intake and Output: 08/18/17 08/18/17 06:59 18:59 Intake Total 800 Balance 800 - Medications Medications: Current Medications Acetaminophen (Tylenol 325mg Tab) 650 mg PO Q6 PRN PRN Reason: Fever >100.4 F Last Admin: 08/16/17 20:02 Dose: 650 mg Albuterol Sulfate (Albuterol 0.083% Inhal Татьяна (2.5 Mg/3 Ml) Ud) 2.5 mg INH RQ6 [facility] Last Admin: 08/18/17 13:09 Dose: 2.5 mg Benzonatate (Tessalon Perles) 200 mg PO BID [facility] Last Admin: 08/18/17 09:45 Dose: 200 mg Heparin Sodium (Porcine) (Heparin) 5,000 units SC Q12 [facility] Last Admin: 08/18/17 09:45 Dose: 5,000 units Ciprofloxacin (Cipro 400mg/200ml Dsw) 400 mg in 200 mls @ 200 mls/hr IVPB Q12H [facility] Stop: 08/19/17 16:59 Last Admin: 08/18/17 04:36 Dose: 200 mls/hr Aztreonam 1 gm/ Sodium (Chloride) 100 mls @ 200 mls/hr IVPB Q8H [facility] PRN Reason: Protocol Last Admin: 08/18/17 08:16 Dose: 200 mls/hr Losartan Potassium (Cozaar) 50 mg PO DAILY [facility] Last Admin: 08/18/17 09:45 Dose: 50 mg Methylprednisolone (Solu-Medrol) 40 mg IVP Q8 [facility] Pneumococcal Polyvalent Vaccine (Pneumovax 23 Vaccine) 0.5 ml IM .ONCE ONE Stop: 08/20/17 10:01 - Labs Labs: 08/16/17 13:10 08/16/17 13:10 Assessment and Plan (1) Cough Status: Acute (2) UTI (urinary tract infection) Status: Acute
--- NOTE | 2017-08-18 13:52 | US ---
Abdominal ultrasound History: Liver lesions. Comparison: CT chest dated 08/16/2017 Technique: Real-time sonography was performed through the abdomen. Findings: Liver: Prominent measuring 19.7 centimeters in length. Increased echogenicity of the hepatic parenchymal cortex suggestive for fatty infiltration versus hepatic parenchymal disease. Hypoechoic lesions within the right hepatic lobe measuring 8 x 8 x 9 millimeters and in the midline measuring 1.3 x 0.8 x 1.5 centimeters suggestive for possible cysts. Gallbladder: No calculi or sludge. Normal wall thickness of 2.6 millimeters. Negative sonographic Carney's sign. Common bile duct measures 4 millimeters, within normal limits. Visualized portions of the pancreas are preserved. Pancreatic tail not well visualized. Enlarged spleen measuring up to 2.3 centimeters in length. Visualized portions of the aorta and IVC are preserved. Right kidney: 14.7 x 5.9 x 6.0 centimeters. No calculi or hydronephrosis. Left Kidney: 15.2 x 6.9 x 6.0 centimeters. No calculi or hydronephrosis. Lower pole hypoechoic cyst measuring 2.6 x 2.6 x 2.4 centimeters. Additional midpole hypoechoic cyst measuring 9 x 11 x 12 millimeters. Impression: Enlarged liver with diffuse increased echogenicity of the hepatic parenchymal cortex suggestive for fatty infiltration versus hepatic parenchymal disease. Hypoechoic lesions within the liver as described above suggestive for possible cysts. These may be better delineated with multiphasic CT or MR if clinically indicated. Limited visualization of the pancreas. Enlarged spleen. Left renal cysts as described above.
--- NOTE | 2017-08-18 14:25 | US ---
Thyroid ultrasound History: Thyroid nodules. Comparison: CT chest dated 08/16/2017 Technique: Real-time sonography was performed through the thyroid. Findings: Right lobe: 6.1 x 2.3 x 3.0 centimeters. Heterogeneous echotexture. Normal flow. Complex solid/cystic nodule in the midpole of the right thyroid lobe measuring 1.7 x 1.1 x 1.0 centimeters. Thyroid isthmus measures 2 millimeters. Heterogeneous echotexture. Normal flow. Left lobe: 5.3 x 2.5 x 2.0 centimeters. Heterogeneous echotexture. Normal flow. Midpole lobulated solid echogenic nodule measuring 1.0 x 1.0 x 0.9 centimeters with a peripheral hypoechoic focus. Additional lower pole hypoechoic nodule measuring 7 x 7 x 7 millimeters with a small questionable nodular peripheral echogenic foci. Alternatively, this lower pole nodule may represent a parathyroid nodule. Correlation with nuclear medicine study may be helpful if clinically indicated. Impression: Bilateral thyroid nodules as described. Question left lower pole thyroid nodule versus parathyroid nodule. Correlation with nuclear medicine study may be helpful if clinically indicated.
[2017-08-18 14:33] LABS: FREE T4 1.19 ng/dL (0.78-2.19)
[2017-08-18] MEDS: MethylPREDNISolone 40 mg Vial IVP SCH ×2 (14:44→22:04)
[2017-08-19] MEDS: Aztreonam 1 GM in Sodium Chloride 0.9% 100 ML IVPB SCH ×3 (00:19→15:31)
[2017-08-19] MEDS: Albuterol 0.083% Inhal Sol (2.5 mg/3 mL) UD INH SCH ×4 (01:28→20:42)
[2017-08-19] MEDS: Ciprofloxacin 400mg/200ml D5W 400 MG/200 ML BAG IVPB SCH ×2 (04:30→17:15)
[2017-08-19] MEDS: MethylPREDNISolone 40 mg Vial IVP SCH ×3 (05:42→22:06)
--- NOTE | 2017-08-19 10:09 | CP.PCM.PN ---
Subjective - Date & Time of Evaluation Date of Evaluation: 08/19/17 Time of Evaluation: 10:06 - Subjective Subjective: feels beter less cough has multipleleasions liver has thyroid nodule Objective - Vital Signs/Intake and Output Vital Signs (last 24 hours): Temp Pulse Resp BP Pulse Ox 98.2 F 84 20 135/85 94 L 08/19/17 08:11 08/19/17 08:11 08/19/17 08:11 08/19/17 08:11 08/19/17 08:11 Intake and Output: 08/19/17 08/19/17 06:59 18:59 Intake Total 1140 Output Total 2 Balance 1138 - Medications Medications: Current Medications Acetaminophen (Tylenol 325mg Tab) 650 mg PO Q6 PRN PRN Reason: Fever >100.4 F Last Admin: 08/16/17 20:02 Dose: 650 mg Albuterol Sulfate (Albuterol 0.083% Inhal Татьяна (2.5 Mg/3 Ml) Ud) 2.5 mg INH RQ6 [facility] Last Admin: 08/19/17 07:26 Dose: 2.5 mg Benzonatate (Tessalon Perles) 200 mg PO BID [facility] Last Admin: 08/19/17 09:36 Dose: 200 mg Heparin Sodium (Porcine) (Heparin) 5,000 units SC Q12 [facility] Last Admin: 08/19/17 09:35 Dose: 5,000 units Ciprofloxacin (Cipro 400mg/200ml Dsw) 400 mg in 200 mls @ 200 mls/hr IVPB Q12H [facility] Stop: 08/19/17 16:59 Last Admin: 08/19/17 04:30 Dose: 200 mls/hr Aztreonam 1 gm/ Sodium (Chloride) 100 mls @ 200 mls/hr IVPB Q8H [facility] PRN Reason: Protocol Last Admin: 08/19/17 08:14 Dose: 200 mls/hr Losartan Potassium (Cozaar) 50 mg PO DAILY [facility] Last Admin: 08/19/17 09:35 Dose: 50 mg Methylprednisolone (Solu-Medrol) 40 mg IVP Q8 [facility] Last Admin: 08/19/17 05:42 Dose: 40 mg Pneumococcal Polyvalent Vaccine (Pneumovax 23 Vaccine) 0.5 ml IM .ONCE ONE Stop: 08/20/17 10:01 - Labs Labs: 08/16/17 13:10 08/16/17 13:10 - Constitutional Appears: Non-toxic - Head Exam Head Exam: NORMAL INSPECTION - Eye Exam Eye Exam: Normal appearance Pupil Exam: NORMAL ACCOMODATION - ENT Exam ENT Exam: Normal Exam - Neck Exam Neck Exam: Full ROM - Respiratory Exam Respiratory Exam: Decreased Breath Sounds - Cardiovascular Exam Cardiovascular Exam: REGULAR RHYTHM - GI/Abdominal Exam GI & Abdominal Exam: Soft - Extremities Exam Extremities Exam: Normal Inspection - Back Exam Back Exam: CVA tenderness (L) - Neurological Exam Neurological Exam: Alert, Awake, Oriented x3 - Psychiatric Exam Psychiatric exam: Normal Affect, Normal Mood - Skin Skin Exam: Normal Color Assessment and Plan - Assessment and Plan (Free Text) Assessment: brochitis pnumonitis improving ac uti will repeat urin analysis muliple leasions liver thyroid nodule discused with daughter and her as per pt request Plan: as ordered
[2017-08-19 11:27] LABS: SQUAMOUS EPITHIAL < 1 /hpf (0-5); URINE BILIRUBIN NEGATIVE (NEGATIVE); URINE BLOOD NEGATIVE (NEGATIVE); URINE CLARITY Clear (Clear); URINE COLOR Yellow (YELLOW); URINE GLUCOSE (UA) 3+ mg/dL (Normal); URINE LEUKOCYTE ESTERASE NEG Leu/uL (Negative); URINE PROTEIN NEGATIVE (NEGATIVE)
--- NOTE | 2017-08-19 14:25 | CP.PCM.PN ---
Subjective - Date & Time of Evaluation Date of Evaluation: 08/19/17 Time of Evaluation: 07:00 - Subjective Subjective: awake alert less sob no fever Objective - Vital Signs/Intake and Output Vital Signs (last 24 hours): Temp Pulse Resp BP Pulse Ox 98.2 F 84 20 135/85 96 08/19/17 08:11 08/19/17 08:11 08/19/17 08:11 08/19/17 08:11 08/19/17 08:30 Intake and Output: 08/19/17 08/19/17 06:59 18:59 Intake Total 1140 Output Total 2 Balance 1138 - Medications Medications: Current Medications Acetaminophen (Tylenol 325mg Tab) 650 mg PO Q6 PRN PRN Reason: Fever >100.4 F Last Admin: 08/16/17 20:02 Dose: 650 mg Albuterol Sulfate (Albuterol 0.083% Inhal Татьяна (2.5 Mg/3 Ml) Ud) 2.5 mg INH RQ6 [facility] Last Admin: 08/19/17 14:07 Dose: 2.5 mg Benzonatate (Tessalon Perles) 200 mg PO BID [facility] Last Admin: 08/19/17 09:36 Dose: 200 mg Heparin Sodium (Porcine) (Heparin) 5,000 units SC Q12 [facility] Last Admin: 08/19/17 09:35 Dose: 5,000 units Ciprofloxacin (Cipro 400mg/200ml Dsw) 400 mg in 200 mls @ 200 mls/hr IVPB Q12H [facility] Stop: 08/19/17 16:59 Last Admin: 08/19/17 04:30 Dose: 200 mls/hr Aztreonam 1 gm/ Sodium (Chloride) 100 mls @ 200 mls/hr IVPB Q8H [facility] PRN Reason: Protocol Last Admin: 08/19/17 08:14 Dose: 200 mls/hr Losartan Potassium (Cozaar) 50 mg PO DAILY [facility] Last Admin: 08/19/17 09:35 Dose: 50 mg Methylprednisolone (Solu-Medrol) 40 mg IVP Q8 [facility] Last Admin: 08/19/17 13:52 Dose: 40 mg Pneumococcal Polyvalent Vaccine (Pneumovax 23 Vaccine) 0.5 ml IM .ONCE ONE Stop: 08/20/17 10:01 - Labs Labs: 08/16/17 13:10 08/16/17 13:10 - Constitutional Appears: Non-toxic, Chronically Ill - Head Exam Head Exam: NORMOCEPHALIC - Eye Exam Eye Exam: PERRL - ENT Exam ENT Exam: Mucous Membranes Dry - Neck Exam Neck Exam: Normal Inspection - Respiratory Exam Respiratory Exam: Decreased Breath Sounds - Cardiovascular Exam Cardiovascular Exam: REGULAR RHYTHM - GI/Abdominal Exam GI & Abdominal Exam: Distended, Soft - Rectal Exam Rectal Exam: Deferred - Exam Exam: NORMAL INSPECTION - Extremities Exam Extremities Exam: absent: Pedal Edema - Back Exam Back Exam: absent: CVA tenderness (L), CVA tenderness (R) - Neurological Exam Neurological Exam: Alert, Awake, Oriented x3 Assessment and Plan (1) Cough Status: Acute (2) History of hydrocelectomy Status: Acute (3) Pneumonia Status: Acute (4) UTI (urinary tract infection) Status: Acute - Assessment and Plan (Free Text) Assessment: iv rx renewed
--- NOTE | 2017-08-19 16:20 | CP.PCM.PN ---
Subjective - Date & Time of Evaluation Date of Evaluation: 08/19/17 Time of Evaluation: 14:00 - Subjective Subjective: the patient seen and examined Still coughing but feels much better Patient states he able to breathe much better Afebrile Continue IV steroids Continue nebulizer treatment Objective - Vital Signs/Intake and Output Vital Signs (last 24 hours): Temp Pulse Resp BP Pulse Ox 98.2 F 84 20 135/85 96 08/19/17 08:11 08/19/17 08:11 08/19/17 08:11 08/19/17 08:11 08/19/17 08:30 Intake and Output: 08/19/17 08/19/17 06:59 18:59 Intake Total 1140 600 Output Total 2 Balance 1138 600 - Medications Medications: Current Medications Acetaminophen (Tylenol 325mg Tab) 650 mg PO Q6 PRN PRN Reason: Fever >100.4 F Last Admin: 08/16/17 20:02 Dose: 650 mg Albuterol Sulfate (Albuterol 0.083% Inhal Татьяна (2.5 Mg/3 Ml) Ud) 2.5 mg INH RQ6 [facility] Last Admin: 08/19/17 14:07 Dose: 2.5 mg Benzonatate (Tessalon Perles) 200 mg PO BID [facility] Last Admin: 08/19/17 09:36 Dose: 200 mg Heparin Sodium (Porcine) (Heparin) 5,000 units SC Q12 [facility] Last Admin: 08/19/17 09:35 Dose: 5,000 units Ciprofloxacin (Cipro 400mg/200ml Dsw) 400 mg in 200 mls @ 200 mls/hr IVPB Q12H [facility] Stop: 08/19/17 16:59 Last Admin: 08/19/17 04:30 Dose: 200 mls/hr Aztreonam 1 gm/ Sodium (Chloride) 100 mls @ 200 mls/hr IVPB Q8H [facility] PRN Reason: Protocol Last Admin: 08/19/17 15:31 Dose: 200 mls/hr Losartan Potassium (Cozaar) 50 mg PO DAILY [facility] Last Admin: 08/19/17 09:35 Dose: 50 mg Methylprednisolone (Solu-Medrol) 40 mg IVP Q8 [facility] Last Admin: 08/19/17 13:52 Dose: 40 mg Pneumococcal Polyvalent Vaccine (Pneumovax 23 Vaccine) 0.5 ml IM .ONCE ONE Stop: 08/20/17 10:01 - Labs Labs: 08/16/17 13:10 08/16/17 13:10 Assessment and Plan (1) Cough Status: Acute (2) UTI (urinary tract infection) Status: Acute
[2017-08-20] MEDS: Aztreonam 1 GM in Sodium Chloride 0.9% 100 ML IVPB SCH ×3 (00:04→17:36)
[2017-08-20] MEDS: Albuterol 0.083% Inhal Sol (2.5 mg/3 mL) UD INH SCH ×3 (01:09→13:07)
[2017-08-20] MEDS: MethylPREDNISolone 40 mg Vial IVP SCH ×2 (06:08→14:20)
[2017-08-20 08:14] LABS: HEPATITIS B SURFACE AG Negative (NEGATIVE)
[2017-08-20 08:19] LABS: HEPATITIS A IGM NEGATIVE (NEGATIVE); HEPATITIS B CORE AB NEGATIVE (NEGATIVE)
[2017-08-20 08:31] LABS: HEPATITIS C ANTIBODY NEGATIVE (NEGATIVE)
[2017-08-20] MEDS ORDERED: Pneumococcal 23-Valent Vaccine IM ONE (10:00)
--- NOTE | 2017-08-20 13:17 | CP.PCM.PN ---
Subjective - Date & Time of Evaluation Date of Evaluation: 08/20/17 Time of Evaluation: 09:00 - Subjective Subjective: improving on IV rx antibiotics and steroids renewed Objective - Vital Signs/Intake and Output Vital Signs (last 24 hours): Temp Pulse Resp BP Pulse Ox 97.8 F 82 20 130/80 97 08/20/17 08:00 08/20/17 08:00 08/20/17 08:00 08/20/17 08:00 08/20/17 08:00 Intake and Output: 08/20/17 08/20/17 06:59 18:59 Intake Total 880 Balance 880 - Medications Medications: Current Medications Acetaminophen (Tylenol 325mg Tab) 650 mg PO Q6 PRN PRN Reason: Fever >100.4 F Last Admin: 08/16/17 20:02 Dose: 650 mg Albuterol Sulfate (Albuterol 0.083% Inhal Татьяна (2.5 Mg/3 Ml) Ud) 2.5 mg INH RQ6 [facility] Last Admin: 08/20/17 13:07 Dose: 2.5 mg Benzonatate (Tessalon Perles) 200 mg PO BID [facility] Last Admin: 08/20/17 09:25 Dose: 200 mg Aztreonam 1 gm/ Sodium (Chloride) 100 mls @ 200 mls/hr IVPB Q8H [facility] PRN Reason: Protocol Last Admin: 08/20/17 08:07 Dose: 200 mls/hr Losartan Potassium (Cozaar) 50 mg PO DAILY [facility] Last Admin: 08/20/17 09:24 Dose: 50 mg Methylprednisolone (Solu-Medrol) 40 mg IVP Q8 [facility] Last Admin: 08/20/17 06:08 Dose: 40 mg - Labs Labs: 08/16/17 13:10 08/16/17 13:10 - Constitutional Appears: Non-toxic, Chronically Ill - Head Exam Head Exam: NORMOCEPHALIC - Eye Exam Eye Exam: PERRL - ENT Exam ENT Exam: Mucous Membranes Dry - Neck Exam Neck Exam: absent: Lymphadenopathy - Respiratory Exam Respiratory Exam: Decreased Breath Sounds - Cardiovascular Exam Cardiovascular Exam: REGULAR RHYTHM - GI/Abdominal Exam GI & Abdominal Exam: Distended, Soft Assessment and Plan (1) Cough Status: Acute (2) History of hydrocelectomy Status: Acute (3) Pneumonia Status: Acute (4) UTI (urinary tract infection) Status: Acute
[2017-08-20 16:08] VITALS: BP 128/71; PULSE 88; TEMP 97.4; O2SAT 96
--- NOTE | 2017-08-20 17:16 | CP.PCM.PN ---
Subjective - Date & Time of Evaluation Date of Evaluation: 08/20/17 Time of Evaluation: 17:17 - Subjective Subjective: Alert, awake, able to ambulate, no acute distress. Objective - Vital Signs/Intake and Output Vital Signs (last 24 hours): Temp Pulse Resp BP Pulse Ox 97.4 F L 88 20 128/71 96 08/20/17 15:00 08/20/17 15:00 08/20/17 15:00 08/20/17 15:00 08/20/17 15:00 Intake and Output: 08/20/17 08/20/17 06:59 18:59 Intake Total 880 600 Balance 880 600 - Medications Medications: Current Medications Acetaminophen (Tylenol 325mg Tab) 650 mg PO Q6 PRN PRN Reason: Fever >100.4 F Last Admin: 08/16/17 20:02 Dose: 650 mg Albuterol Sulfate (Albuterol 0.083% Inhal Татьяна (2.5 Mg/3 Ml) Ud) 2.5 mg INH RQ6 [facility] Last Admin: 08/20/17 13:07 Dose: 2.5 mg Benzonatate (Tessalon Perles) 200 mg PO BID [facility] Last Admin: 08/20/17 09:25 Dose: 200 mg Aztreonam 1 gm/ Sodium (Chloride) 100 mls @ 200 mls/hr IVPB Q8H [facility] PRN Reason: Protocol Last Admin: 08/20/17 08:07 Dose: 200 mls/hr Losartan Potassium (Cozaar) 50 mg PO DAILY [facility] Last Admin: 08/20/17 09:24 Dose: 50 mg Methylprednisolone (Solu-Medrol) 40 mg IVP Q12H [facility] - Labs Labs: 08/16/17 13:10 08/16/17 13:10 Assessment and Plan - Assessment and Plan (Free Text) Assessment: 62 year old male admitted with UTI and pneumonia, seen and examined. Alert and orientedx3, denies sob or chest pains. Cleared by DR Thompson and DR Stephens. Discussed with DR Tez NEGRETE, plan to discharge home today on levaquin 500mg po daily x7 days with tapering dose of prednisone. Advised to follow up with DR Slater and EZ follow up in 1 week.
--- NOTE | 2017-08-20 17:25 | CP.PCM.PN ---
Subjective - Date & Time of Evaluation Date of Evaluation: 08/20/17 Time of Evaluation: 10:30 - Subjective Subjective: Patient seen and examined at bedside today Resting in no respiratory distress Cough improving Reports feeling better than previous days Assessment/Plan: 1. Atelectasis -Finding on CT scan of chest on 08/17/2017. -Incentive Spirometer -Continue nebulizer treatment -Continue Solumedrol -Continue Benzonatate -Continue Aztreonam 2. Urinary Tract Infection -Management per primary team Objective - Vital Signs/Intake and Output Vital Signs (last 24 hours): Temp Pulse Resp BP Pulse Ox 97.4 F L 88 20 128/71 96 08/20/17 15:00 08/20/17 15:00 08/20/17 15:00 08/20/17 15:00 08/20/17 15:00 Intake and Output: 08/20/17 08/20/17 06:59 18:59 Intake Total 880 600 Balance 880 600 - Medications Medications: Current Medications Acetaminophen (Tylenol 325mg Tab) 650 mg PO Q6 PRN PRN Reason: Fever >100.4 F Last Admin: 08/16/17 20:02 Dose: 650 mg Albuterol Sulfate (Albuterol 0.083% Inhal Татьяна (2.5 Mg/3 Ml) Ud) 2.5 mg INH RQ6 [facility] Last Admin: 08/20/17 13:07 Dose: 2.5 mg Benzonatate (Tessalon Perles) 200 mg PO BID [facility] Last Admin: 08/20/17 09:25 Dose: 200 mg Aztreonam 1 gm/ Sodium (Chloride) 100 mls @ 200 mls/hr IVPB Q8H [facility] PRN Reason: Protocol Last Admin: 08/20/17 08:07 Dose: 200 mls/hr Losartan Potassium (Cozaar) 50 mg PO DAILY [facility] Last Admin: 08/20/17 09:24 Dose: 50 mg Methylprednisolone (Solu-Medrol) 40 mg IVP Q12H [facility] - Labs Labs: 08/16/17 13:10 08/16/17 13:10 Assessment and Plan (1) Cough Status: Acute (2) UTI (urinary tract infection) Status: Acute
[2017-08-20] MEDS ORDERED: MethylPREDNISolone 40 mg Vial IVP SCH (18:00)
--- NOTE | 2017-08-25 09:33 | DS ---
The patient came in on 08/16/2017. He was presented to the emergency room after he had a procedure for hydrocele, and he was having some cough, short of breath, and infection in the urine. He was admitted and had cultures done, started on antibiotics. His vital signs were stable. He had chest x-ray done, did also a CAT scan, bilateral lower linear scar, atelectasis and evidence of generalized interstitial disease. At the end, no evidence of sarcoid or findings as above, but it shows multiple small low density nonspecific hepatic masses, about 10 mm each, likely to be a cyst,, in the CAT scan it shows. He has unremarkable thoracic aorta. He has pleural thickening bilaterally. He was started on IV antibiotic, cough medication, nebulizer, and oxygen and he was seen by Dr. Angelo Nix for consultation. He was improving with the medication, coughing decreased, and he was also seen by Dr. Mac for the hydrocele he has, and he had hydrocelectomy on 08/14/2017. The antibiotics he was on, Keflex and doxycycline, but after he was admitted, he was on IV antibiotics. This was before he came. The culture showed gram-negative rods in the urine, but his blood cultures were negative. On 08/20/2017, he was discharged home. He was comfortable, ambulatory, and awake, alert, oriented. No more cough. He was to follow up with Dr. Mac and myself. At the time of discharge, his CBC was normal. His hemoglobin was 15.1. His white count was normal at 10.4, and his sugar was 130. FINAL DIAGNOSES: Acute urinary tract infection, acute pneumonitis and liver cysts. He is to continue Levaquin 500 for 7 more days. Lillie Slater MD
== END 2017-08-20 21:00 | disposition home or self-care (01) | DRG 689 ==
LOC: C.ER 11:46 → C.9E 14:43 → C.3T 14:43
PROVIDERS: ADMIT Internal Medicine; ATTEND Internal Medicine
DX: N39.0 Urinary tract infection, site not specified (principal); J18.9 Pneumonia, unspecified organism; J98.11 Atelectasis; K76.89 Other specified diseases of liver; E04.1 Nontoxic single thyroid nodule; I10 Essential (primary) hypertension; R09.02 Hypoxemia; B96.89 Other specified bacterial agents as the cause of diseases classified elsewhere; Z98.890 Other specified postprocedural states; Z87.442 Personal history of urinary calculi; Z87.01 Personal history of pneumonia (recurrent); Z88.0 Allergy status to penicillin